=== PATIENT | male | born 1985 | race Caucasian/White ===

== ENCOUNTER → 2018-01-05 | Outpatient (CLI) | payer OTHER | END | disposition home or self-care (01) | LOC: CFH 14:31 | PROVIDERS: ATTEND Physician Assistant Surgical | DX: M94.261 Chondromalacia, right knee (principal); M25.761 Osteophyte, right knee ==

== ENCOUNTER → 2018-03-01 | Outpatient (CLI) | payer OTHER ==
[~2018-03-01] MED LIST: NONE PER PT
== END | disposition home or self-care (01) ==
LOC: STAR 15:19
PROVIDERS: ATTEND Orthopaedic Surgery
DX: Z02.9 Encounter for administrative examinations, unspecified (principal)

== ENCOUNTER 2018-03-08 07:28 | Day surgery (SDC) | payer OTHER ==
[2018-03-01 15:46] VITALS: BP 131/88
[~2018-03-08] VITALS: Ht 182.9 cm; Wt 96.0 kg
[2018-03-08] MEDS ORDERED: CEFAZOLIN 1,000 MG ONE ×2 (07:35)
[2018-03-08] MEDS ORDERED: PROPOFOL 10 MG/ML, 20ML ONE (07:35)
[2018-03-08] MEDS ORDERED: SODIUM CHLORIDE 0.9% PF 10ML ONE (07:35)
[2018-03-08] MEDS ORDERED: MIDAZOLAM 1 MG/ML, 2ML ONE (07:35)
[2018-03-08] MEDS ORDERED: FENTANYL PF 250 MCG/5ML ONE (07:35)
[2018-03-08] MEDS ORDERED: LACTATED RINGERS 1,000 ML IV SCH (07:44)
[2018-03-08 07:46] VITALS: BP 131/88
[2018-03-08] MEDS ORDERED: LIDOCAINE-MPF 1%, 2ML INFIL ONE (08:00)
[2018-03-08] MEDS ORDERED: ROPIvacaine/PF 0.5%, 30 ML ONE (08:59)
[2018-03-08] MEDS ORDERED: LIDOCAINE 1%-EPI 1:100K, 30ML ONE (09:00)
[2018-03-08] MEDS ORDERED: ROPIvacaine/PF 0.5%, 20 ML ONE (09:26)
[2018-03-08] MEDS ORDERED: PROMETHAZINE 12.5 MG SUPP PR PRN (09:30)
[2018-03-08] MEDS ORDERED: ACETAMINOPHEN 325 MG TABLET PO PRN (09:30)
[2018-03-08] MEDS ORDERED: FENTANYL PF 100 MCG/2ML IV PRN (09:30)
[2018-03-08] MEDS ORDERED: PROMETHAZINE 25 MG/ML, 1ML IV PRN (09:30)
[2018-03-08] MEDS ORDERED: ONDANSETRON ODT 8 MG PO PRN (09:30)
[2018-03-08] MEDS ORDERED: ONDANSETRON 2MG/ML, 2ML IV PRN (09:30)
[2018-03-08] MEDS ORDERED: PROMETHAZINE 25 MG SUPP PR PRN (09:30)
[2018-03-08] MEDS ORDERED: OXYcodone 5 MG/5 ML ORAL.SOL UDC PO PRN (09:30)
[2018-03-08] MEDS ORDERED: LABETALOL 5MG/ML, 20ML IV PRN (09:30)
[2018-03-08] MEDS ORDERED: MORPHINE SULFATE 4 MG/ML, 1ML IVPush PRN (09:30)
[2018-03-08] MEDS ORDERED: HYDROmorphone 2 MG/ML, 1ML IVPush PRN (09:30)
[2018-03-08] MEDS ORDERED: hydrALAzine 20 MG/ML, 1ML IV PRN (09:30)
[2018-03-08] MEDS ORDERED: PROMETHAZINE 25 MG/ML, 1ML IM PRN ×2 (09:30)
[2018-03-08] MEDS ORDERED: MEPERIDINE/PF 25MG/0.5ML IVPush PRN (09:30)
[2018-03-08] MEDS ORDERED: OXYcodone 5 MG/5 ML ORAL.SOL UDC ONE (10:20)
== END 2018-03-08 11:30 | disposition home or self-care (01) ==
LOC: OUT 07:28
PROVIDERS: ATTEND Orthopaedic Surgery
DX: M22.2X1 Patellofemoral disorders, right knee (principal); M94.8X6 Other specified disorders of cartilage, lower leg; M65.861 Other synovitis and tenosynovitis, right lower leg; M17.11 Unilateral primary osteoarthritis, right knee
CPT/HCPCS: 29873; J0690; J2250; J2704; J2795; J3010; J3490; J7120